=== PATIENT | male | born 1970 | race African-American/Black ===

== ENCOUNTER 2017-03-30 11:52 | Emergency (ER) | payer SELFPAY ==
[~2017-03-30] VITALS: Ht 167.6 cm; Wt 99.4 kg
[2017-03-30] MEDS ORDERED: MOTRIN600 MG PO (13:45)
[2017-03-30] MEDS ORDERED: LIDODERM 5% P1 PATCH TD (13:45)
[2017-03-30 14:49] VITALS: BP 172/115
== END 2017-03-30 14:52 | disposition home or self-care (01) ==
LOC: EME 11:52
DX: M54.42 Lumbago with sciatica, left side (principal); F17.200 Nicotine dependence, unspecified, uncomplicated
CPT/HCPCS: 99281; 99283; J1885